=== PATIENT | male | born 1955 | race Hispanic/Latino ===

== ENCOUNTER 2024-10-09 12:47 | Emergency (ER) | payer OTHER ==
--- NOTE | 2024-10-09 14:07 | RAD REPORT ---
EXAMINATION: US RIGHT LOWER EXTREMITY VENOUS DOPPLER CLINICAL INDICATION: PAIN RIGHT TECHNIQUE: Complete bilateral duplex sonography of the RIGHT lower extremity veins was performed. The examination included compression for vein patency, color Doppler imaging and flow augmentation in response to distal compression of the distal external iliac, common femoral, femoral, popliteal, tibi al, and great and small saphenous veins. COMPARISON: No prior exam. FINDINGS: Duplex sonography testing of the veins of the RIGHT lower extremity was performed. Color flow imaging shows all veins to be compressible with [id number] color filling. Pulsatile and phasic flow is present within all lower extremity deep and superficial veins examined. IMPRESSION: There is no deep vein or superficial vein thrombosis.
--- NOTE | 2024-10-09 14:21 | RAD REPORT ---
EXAMINATION:Lower Extremity Artery Uni Ltd CLINICAL INDICATION: Male, 69 years old. PAIN RIGHT TECHNIQUE: Arterial duplex ultrasound was performed of the right lower extremity with real-time, colo r-flow, and spectral wave Doppler evaluation. Ankle brachial indices were not performed. COMPARISON: No prior exam. FINDINGS: Minimal plaque throughout the evaluated arterial system. Triphasic waveforms are seen throughout the evaluated right lower extremity arterial system, to the l evel of the dorsalis pedis artery. No other suspicious findings. IMPRESSION: No evidence of significant peripheral vascular disease.
--- NOTE | 2024-10-09 15:44 | EDPHYS ---
Physician Documentation [facility] Name: Alan Joshua Age: 69 yrs Sex: Male : 1955 Arrival Date: 10/09/2024 Time: 12:47 Bed 5 Private MD: ED Physician Michelle Wiseman HPI: 10/09 13:25 This 69 yrs old Male presents to ER via Ambulatory with complaints of Leg Pain cp - Right. 13:25 The patient presents with pain, that is acute. The complaints affect the right calf. cp Context: resulted from an unknown cause, the patient can fully bear weight, the patient is able to ambulate, with mild difficulty, Problem is a result from a previous injury: No. 13:25 Onset: The symptoms/episode began/occurred 2 month(s) ago. cp 13:25 Associated signs and symptoms: Pertinent negatives fever, rash, warmth, shortness of cp breath, known injury. Historical: - Allergies: 13:17 No Known Allergies; cm10 - PMHx: 13:17 gastritis; Hypercholesterolemia; Hypertensive disorder; cm10 - Immunization history:: Adult Immunizations up to date. - Infectious Disease History:: Denies. - Social history:: Smoking status: Patient denies any tobacco usage or history of. ROS: 13:40 MS/extremity: Positive for pain, tenderness, of the right calf, Negative for injury or cp acute deformity, decreased range of motion, paresthesias, 13:40 Constitutional: Negative for body aches, chills, fever, cp 13:40 Respiratory: Negative for shortness of breath, wheezing, 13:40 Back: Negative for pain at rest, pain with movement, 13:40 Skin: Negative for rash, 13:40 Neuro: Negative for numbness, weakness, 13:40 All other systems are negative, Exam: 13:43 Constitutional: The patient appears in no acute distress, alert, awake, cp non-diaphoretic, non-toxic, well developed, well nourished, 13:43 Head/Face: Normocephalic, atraumatic. cp 13:43 Chest/axilla: Inspection: normal, 13:43 Cardiovascular: Rate: normal, Rhythm: regular, Pulses: Pulses are 2+ in right dorsalis pedis artery. Edema: is not appreciated, JVD: is not appreciated, 13:43 Respiratory: the patient does not display signs of respiratory distress, Respirations: normal, no use of accessory muscles, no retractions, labored breathing, is not present, Breath sounds: are clear throughout, no decreased breath sounds, no stridor, no wheezing, 13:43 Abdomen/GI: Exam negative for discomfort, distension, guarding, Inspection: abdomen appears normal, 13:43 Back: pain, is absent, ROM is normal, 13:43 Musculoskeletal/extremity: Extremities: noted in the right calf: pain, tenderness, overlying skin warm, dry, intact and with no rashes, There is no evidence of erythema, swelling, Vital Signs: 13:16 BP 159 / 98; Pulse 89; Resp 16; Temp 97.8; Pulse Ox 99% ; Weight 90.72 kg; Height 5 ft. cm10 6 in. ; Pain 7/10; 15:37 BP 152 / 88; Pulse 84; Resp 15; Pulse Ox 100% ; ko1 13:16 Body Mass Index 32.28 (90.72 kg, 167.64 cm) cm10 13:16 Pain Scale: Adult cm10 MDM: 13:23 Medical Screening Exam initiated cp 14:00 Differential diagnosis: cellulitis, dvt, muscle strain. cp 15:42 Data reviewed: vital signs, nurses notes, radiologic studies, plain films, ultrasound, cp and as a result, I will discharge patient. 15:42 Independent interpretation of the following test(s) in the Emergency Department X-Ray: cp My interpretation is images of right tib/fib negative for fracture. Counseling: I had a detailed discussion with the patient and/or guardian regarding the historical points, exam findings, and any diagnostic results supporting the discharge/admit diagnosis, radiology results, to return to the emergency department if symptoms worsen or persist or if there are any questions or concerns that arise at home. Response to treatment: the patient's symptoms have mildly improved after treatment, and as a result, I will discharge patient. 10/09 13:17 Order name: Extremity Venous Unilateral Ltd; Complete Time: 14:12 cp 10/09 14:12 Interpretation: Report reviewed. cp 10/09 13:17 Order name: LE Artery Uni Ltd; Complete Time: 14:36 cp 10/09 14:36 Order name: XRAY Tib Fib RIGHT cp Administered Medications: No medications were administered Disposition: 10/10 14:31 Chart complete. cp Disposition Summary: 10/09/24 15:43 Discharge Ordered Notes: Location: Home cp Problem: new cp Symptoms: have improved cp Condition: Stable cp Diagnosis - Pain in right lower leg cp Followup: cp - With: Private Physician - When: 1 week - Reason: Recheck today's complaints Discharge Instructions: - Discharge Summary Sheet cp - Musculoskeletal Pain cp - How to Use Cold Therapy cp - Heat Therapy cp Forms: - Medication Reconciliation Form cp - Antibiotic Education cp - Prescription Opioid Use cp - Patient Portal Instructions cp - Leadership Thank You Letter cp Prescriptions: - Celebrex 200 mg Oral capsule - take 1 capsule ORAL route every 12 hours As needed take with food; 20 capsule; cp Refills: 0, Product Selection Permitted Addendum: 23:55 Co-signature as Attending Physician, Michelle Wiseman MD I reviewed the patient's care s d2 provided by the Advanced Practice Provider and agree with the diagnosis and treatment plan. Signatures: Dispatcher [employer] Geoffrey Marroquin PA PA cp Dunlop, Stephanie, MD MD sd2 Dorinda Nicholson RN RN cm10
--- NOTE | 2024-10-09 15:44 | ER ---
Nurse's Notes [facility] Name: Alan Joshua Age: 69 yrs Sex: Male : 1955 Arrival Date: 10/09/2024 Time: 12:47 Bed 5 Private MD: Diagnosis: Pain in right lower leg Presentation: 10/09 13:16 Chief complaint: Patient states: right calf pain X2 months. Coronavirus screen: Client cm10 denies travel out of the [place] in the last 14 days. Ebola Screen: Patient denies travel to an Ebola-affected area in the 21 days before illness onset. Initial Sepsis Screen: Does the patient meet any 2 criteria? No. Patient's initial sepsis screen is negative. Does the patient have a suspected source of infection? No. Patient's initial sepsis screen is negative. Risk Assessment: Do you want to hurt yourself or someone else? Patient reports no desire to harm self or others. Onset of symptoms is unknown. 13:16 Method Of Arrival: Ambulatory cm10 13:16 Acuity: SARA 4 cm10 Triage Assessment: 13:18 General: Appears in no apparent distress. comfortable, Behavior is calm, cooperative. cm10 Neuro: No deficits noted. Level of Consciousness is awake, alert, obeys commands, Oriented to person, place, time, situation, Appropriate for age. Respiratory: No deficits noted. Airway is patent Respiratory effort is even, unlabored, Respiratory pattern is regular, symmetrical. Historical: - Allergies: 13:17 No Known Allergies; cm10 - PMHx: 13:17 gastritis; Hypercholesterolemia; Hypertensive disorder; cm10 - Immunization history:: Adult Immunizations up to date. - Infectious Disease History:: Denies. - Social history:: Smoking status: Patient denies any tobacco usage or history of. Screenin:37 [facility] ED Fall Risk Assessment (Adult) History of falling in the last 3 months, ko1 including since admission No falls in past 3 months (0 pts) Confusion or Disorientation No (0 pts) Intoxicated or Sedated No (0 pts) Impaired Gait No (0 pts) Mobility Assist Device Used No (0 pt) Altered Elimination No (0 pt) Score/Fall Risk Level 0 - 2 = Low Risk Oriented to surroundings, Maintained a safe environment, Educated pt \T\ family on fall prevention, incl call for assistance when getting out of bed, Assessed \T\ reinforced patient's understanding of fall precautions, Hourly rounding (assess needs \T\ fall precautionary measures) done. Abuse screen: Denies threats or abuse. Denies injuries from another. Nutritional screening: No deficits noted. Tuberculosis screening: No symptoms or risk factors identified. Assessment: 15:37 General: Appears in no apparent distress. Behavior is calm, cooperative, appropriate ko1 for age. Pain: Complains of pain in right calf. Vital Signs: 13:16 BP 159 / 98; Pulse 89; Resp 16; Temp 97.8; Pulse Ox 99% ; Weight 90.72 kg; Height 5 ft. cm10 6 in. ; Pain 7/10; 15:37 BP 152 / 88; Pulse 84; Resp 15; Pulse Ox 100% ; ko1 13:16 Body Mass Index 32.28 (90.72 kg, 167.64 cm) cm10 13:16 Pain Scale: Adult cm10 ED Course: 12:53 Patient arrived in ED. ra3 13:08 Geoffrey Leonard PA is PHCP. cp 13:08 Michelle Wiseman MD is Attending Physician. cp 13:17 Triage completed. cm10 13:17 Arm band placed on right wrist. Patient placed in waiting room. cm10 13:58 US Extremity Venous Unilateral Ltd In Process Unspecified. EDMS 13:58 US LE Artery Uni Ltd In Process Unspecified. EDMS 15:14 Yvonne Au, RN is Primary Nurse. ko1 15:26 XRAY Tib Fib RIGHT In Process Unspecified. EDMS 15:37 Patient has correct armband on for positive identification. Bed in low position. Call ko1 light in reach. Side rails up X 1. Provided Education on: tests. Pulse ox on. NIBP on. Door closed. Noise minimized. Lights dimmed. Pillow given. 15:37 No provider procedures requiring assistance completed. Patient did not have IV access ko1 during this emergency room visit. Administered Medications: No medications were administered Medication: 15:37 VIS not applicable for this client. ko1 Outcome: 15:43 Discharge ordered by . cp 15:45 Discharged to home ambulatory, ko1 15:45 Condition: stable 15:45 Discharge instructions given to patient, Instructed on discharge instructions, follow up and referral plans. medication usage, Demonstrated understanding of instructions, follow-up care, medications, Prescriptions given X 1, 15:52 Patient left the ED. ko1 Signatures: Dispatcher [employer] EDMS Geoffrey Leonard PA PA cp Oliver, Kathy RN RN ko1 Dorinda Nicholson RN RN cm10 Sanjuanita, Magalys segundo3
[2024-10-09 16:13] VITALS: TEMP 97.8
[2024-10-09 16:14] VITALS: BP 152/88; O2SAT 100
--- NOTE | 2024-10-09 16:14 | RAD REPORT ---
EXAMINATION: XR RIGHT TIBIA AND FIBULA CLINICAL INDICATION: PAIN TECHNIQUE:Two view radiograph of the right tibia and fibula were obtained. COMPARISON: No prior exam. FINDINGS: No fracture or dislocation seen. Small plantar calcaneal spur.
== END 2024-10-09 15:52 | disposition home or self-care (01) ==
LOC: ER 12:47
DX: M79.661 Pain in right lower leg (principal)
CPT/HCPCS: 93926; 93971; 99283